=== PATIENT | male | born 1990 | race Caucasian/White ===

== ENCOUNTER 2021-04-25 22:42 | Emergency (ER) | payer OTHER ==
[~2021-04-25] VITALS: Ht 167.6 cm; Wt 60.6 kg
--- NOTE | 2021-04-25 23:12 | PHYS DOC ---
Past History Past Surgical History: No Surgical History General Adult EDM: Chief Complaint: ABDOMINAL PAIN HPI: HPI: 30-year-old male presents with right lower quadrant abdominal pain that started around 6 PM tonight. He describes the pain as a sharp cramping sensation that is intermittent. When it comes, it can be a 10 out of 10. He had a bowel movement today. He has had no difficulty urinating. He denies any falls or trauma. He has not had pain like this before. No history of abdominal surgery. He denies fever or chills. Review of Systems: Review of Systems: Constitutional: Denies fever or chills Eyes: Denies change in visual acuity HENT: Denies nasal congestion or sore throat Respiratory: Denies cough or shortness of breath Cardiovascular: Denies chest pain or edema GI: Right lower quadrant abdominal pain, nausea. Denies vomiting, bloody stools or diarrhea : Denies dysuria Musculoskeletal: Denies back pain or joint pain Integument: Denies rash Neurologic: Denies headache, focal weakness or sensory changes Endocrine: Denies polyuria or polydipsia Lymphatic: Denies swollen glands Psychiatric: Denies depression or anxiety Current Medications: Current Meds: Current Medications Medications (Trade) Dose Ordered Sig/Primitivo Start Time Stop Time Status Last Admin Dose Admin Info (Do NOT chart on this entry -- for MONITORING) 1 each PRN DAILY PRN 04/25/21 23:15 04/27/21 23:14 Iohexol (Omnipaque 300 Mg/ml) 75 ml 1X ONCE 04/25/21 23:15 04/25/21 23:16 Morphine Sulfate (Morphine 4mg Syringe) 4 mg 1X ONCE 04/25/21 23:15 04/25/21 23:16 UNV Ondansetron HCl (Zofran) 4 mg 1X ONCE 04/25/21 23:15 04/25/21 23:16 UNV Sodium Chloride 1,000 ml @ 1,000 mls/hr 1X ONCE 04/25/21 23:15 04/26/21 00:14 Allergies: Allergies: Allergies Coded Allergies Type Severity Reaction Last Updated Verified No Known Drug Allergies 04/25/21 No Physical Exam: PE: Constitutional: Well developed, well nourished, no acute distress, non-toxic appearance. [] HENT: Normocephalic, atraumatic, bilateral external ears normal, oropharynx moist, no oral exudates, nose normal. [] Eyes: PERRLA, EOMI, conjunctiva normal, no discharge. [] Neck: Normal range of motion, no tenderness, supple, no stridor. [] Cardiovascular:Heart rate regular rhythm, no murmur [] Lungs & Thorax: Bilateral breath sounds clear to auscultation [] Abdomen: Bowel sounds normal, soft, right lower quadrant tenderness without guarding, no masses, no pulsatile masses. [] Skin: Warm, dry, no erythema, no rash. [] Back: No tenderness, no CVA tenderness. [] Extremities: No tenderness, no cyanosis, no clubbing, ROM intact, no edema. [] Neurologic: Alert and oriented X 3, normal motor function, normal sensory function, no focal deficits noted. [] Psychologic: Affect normal, judgement normal, mood normal. [] Current Patient Data: Vital Signs: Vital Signs Date Time Temp Pulse Resp B/P (MAP) Pulse Ox O2 Delivery O2 Flow Rate FiO2 04/25/21 22:50 98.3 91 18 132/86 (101) 99 Room Air EKG: EKG: [] Radiology/Procedures: Radiology/Procedures: [] Impressions: EXAM: CT Abdomen and Pelvis with IV contrast CLINICAL HISTORY: Reason: OMNI 300,75ML IV.Abdominal pain / Spl. Instructions: / History: . COMPARISON: none TECHNIQUE: Helical CT of the abdomen and pelvis was performed following the administration of intravenous contrast. Axial, coronal and sagittal reformatted images were generated. PQRS compliance statement - One or more of the following individualized dose reduction techniques were utilized for this study: 1. Automated exposure control 2. Adjustment of the mA and/or kV according to patient size 3. Use of iterative reconstruction technique FINDINGS: Lower Chest: Visualized lung bases are clear. Abdomen and Pelvis: The liver, gallbladder, spleen, adrenals, kidneys are unremarkable. Symmetric pleural nephrograms. No evidence of nephrolithiasis or hydronephrosis. The stomach is distended with ingested material. There is no evidence of bowel obstruction or focal inflammatory process. The appendix is dilated up to 9 mm with increased mucosal thickening and enhancement with mild periappendiceal inflammation. There is no evidence of free intra-abdominal air to suggest perforation. No pathologically enlarged abdominal or pelvic lymph nodes. Vasculature is normal in course and caliber. Bones: No evidence of acute osseous of normality IMPRESSION: Findings of acute appendicitis. These findings were discussed with Dr. Barney at 04/25/2021 11:[address] Dubon Electronically signed by: Annie Dubon DO (04/25/2021 11:43 PM) [facility] DICTATED AND SIGNED BY: ANNIE DUBON DO DATE: 04/25/216 CC: DEIDRA BARNEY DO; PCP,UNKNOWN ~MTH0 0 Heart Score: C/O Chest Pain: N/A Risk Factors: Risk Factors: DM, Current or recent (<one month) smoker, HTN, HLP, family history of CAD, obesity. Risk Scores: Score 0 - 3: 2.5% MACE over next 6 weeks - Discharge Home Score 4 - 6: 20.3% MACE over next 6 weeks - Admit for Clinical Observation Score 7 - 10: 72.7% MACE over next 6 weeks - Early Invasive Strategies Course & Med Decision Making: Course & Med Decision Making Pertinent Labs and Imaging studies reviewed. (See chart for details) The patient has a white count of 14 with a left shift. His labs are unremarkable. His urinalysis is negative for infection. The CT of the abdomen and pelvis shows acute appendicitis without rupture. I will consult general surgery. I will also start patient on Zosyn. I spoke with Dr. Woods, general surgery and he has recommended transfer the patient to [facility]. I spoke with Dr. San, hospitalist and he has accepted the patient for admission and transfer. The patient will go by ambulance. [] Andrewon Disclaimer: Tutu Disclaimer: This electronic medical record was generated, in whole or in part, using a voice recognition dictation system. Departure Departure: Impression: Primary Impression: Appendicitis Qualified Codes: K35.30 - Acute appendicitis with localized peritonitis, wi thout perforation or gangrene Disposition: 02 SHORT TERM HOSPITAL Condition: STABLE Referrals: PCP,UNKNOWN (PCP) DEIDRA BARNEY DO Apr 25, 2021 23:12
[2021-04-25] MEDS ORDERED: IV NORMAL SALINE 1,000ML 1,000 ML IV ONE (23:15)
[2021-04-25] MEDS ORDERED: CONTRAST GIVEN. MC PRN (23:15)
[2021-04-25] MEDS ORDERED: MORPHINE SULFATE 4 MG/ML DISP.SYRIN. IV ONE (23:15)
[2021-04-25] MEDS ORDERED: ONDANSETRON PF 4 MG/2 ML VIAL. IVP ONE (23:15)
[2021-04-25] MEDS ORDERED: IOHEXOL 300 MG/ML 75 ML VIAL. IV ONE (23:15)
[2021-04-25 23:28] LABS: BASO # 0.1 x10^3/uL (0.0-0.2); BASO % 1 % (0-3); EOS # 0.3 x10^3/uL (0.0-0.7); EOS % 2 % (0-3); LYMPH # 1.6 x10^3/uL (1.0-4.8); LYMPH % 11 % (24-48); MEAN CORPUSCULAR HEMOGLOBIN 32 pg (25-35); MEAN CORPUSCULAR HGB CONC 34 g/dL (31-37); MEAN CORPUSCULAR VOLUME 93 fL (79-100); MONO # 1.1 x10^3/uL (0.0-1.1); MONO % 8 % (0-9); NEUT # 11.6 x10^3uL (1.8-7.7); NEUT % 79 % (31-73); PLATELET COUNT 247 x10^3/uL (140-400); RED BLOOD COUNT 4.71 x10^6/uL (4.30-5.70); RED CELL DISTRIBUTION WIDTH 13.1 % (11.5-14.5); WHITE BLOOD COUNT 14.7 x10^3/uL (4.0-11.0)
[2021-04-25 23:37] LABS: CALCIUM 9.1 mg/dL (8.5-10.1); GFR 87.7; POTASSIUM 3.4 mmol/L (3.5-5.1)
[2021-04-25 23:39] LABS: BACTERIA,URINE FEW /HPF (0-FEW); BILIRUBIN,URINE NEG (NEG); CLARITY,URINE CLEAR; COLOR,URINE YELLOW; GLUCOSE,URINE NEG (NEG); NITRITE,URINE NEG (NEG); RBC,URINE 0 /HPF (0-2); SQUAMOUS EPITHELIAL CELL,UR OCC /LPF; WBC,URINE OCC /HPF (0-4)
[2021-04-25 23:40] LABS: AMORPHOUS SEDIMENT,UR PRESENT /HPF
--- NOTE | 2021-04-25 23:45 | RAD ---
EXAM: CT Abdomen and Pelvis with IV contrast CLINICAL HISTORY: Reason: OMNI 300,75ML IV.Abdominal pain / Spl. Instructions: / History: . COMPARISON: none TECHNIQUE: Helical CT of the abdomen and pelvis was performed following the administration of intrave nous contrast. Axial, coronal and sagittal reformatted images were generated. PQRS compliance statement - One or more of the following individualized dose reduction techniques wer e utilized for this study: 1. Automated exposure control 2. Adjustment of the mA and/or kV according to patient size 3. Use of iterative reconstruction technique FINDINGS: Lower Chest: Visualized lung bases are clear. Abdomen and Pelvis: The liver, gallbladder, spleen, adrenals, kidneys are unremarkable. Symmetric pleural nephrograms. No evidence of nephrolithiasis or hydronephrosis. The stomach is distended with ingested material. Ther e is no evidence of bowel obstruction or focal inflammatory process. The appendix is dilated up to 9 mm with increased mucosal thickening and enhancement with mild periappendiceal inflammation. There is no evidence of free intra-abdominal air to suggest perforation. No pathologically enlarged abdominal or pelvic lymph nodes. Vasculature is normal in course and calib er. Bones: No evidence of acute osseous of normality IMPRESSION: Findings of acute appendicitis. These findings were discussed with Dr. Mishra at 04/25/2021 11:[address] Dubon Electronically signed by: Yosi Dubon DO (04/25/2021 11:43 PM) [facility]
[2021-04-25 23:51] LABS: ALBUMIN 4.7 g/dL (3.4-5.0); ALBUMIN/GLOBULIN RATIO 1.7 (1.0-1.7); TOTAL BILIRUBIN 0.8 mg/dL (0.2-1.0); TOTAL PROTEIN 7.5 g/dL (6.4-8.2)
[2021-04-26] MEDS ORDERED: PIPERACILLIN/TAZOBACTAM 3.375 GM in IV NORMAL SALINE 50ML 50 ML IV ONE
[2021-04-26] MEDS ORDERED: PIPERACILLIN/TAZOBACTAM 3.375 GM VIAL IV ONE (00:04)
[2021-04-26] MEDS ORDERED: IV NORMAL SALINE 50ML 50 ML ONE (00:04)
[2021-04-26 00:38] VITALS: BP 120/82
== END 2021-04-26 01:35 | disposition short-term general hospital (02) ==
LOC: ER 22:42
DX: K37 Unspecified appendicitis (principal)
CPT/HCPCS: 36415; 74177; 80053; 81001; 85025; 96361; 96365; 96375; 99285; J2270; J2405; J2543; J7030